=== PATIENT | male | born 1945 | race Caucasian/White ===

== ENCOUNTER 2017-05-06 12:17 | Outpatient (CLI) | payer MEDICARE | END 2017-05-06 12:18 | disposition home or self-care (01) | LOC: RT 12:17 | PROVIDERS: ATTEND Physician Assistant | DX: R07.9 Chest pain, unspecified (principal); I10 Essential (primary) hypertension; I25.10 Atherosclerotic heart disease of native coronary artery without angina pectoris; Z95.5 Presence of coronary angioplasty implant and graft | CPT/HCPCS: 93005; 93306 ==

== ENCOUNTER 2017-06-29 15:23 | Outpatient (CLI) | payer MEDICARE ==
[2017-06-29 15:47] LABS: BASOPHILS # (AUTO) 0.1 10^3/uL (0.0-0.1); BASOPHILS % (AUTO) 0.6 %; EOSINOPHILS # (AUTO) 0.4 10^3/uL (0.0-0.7); EOSINOPHILS % (AUTO) 4.7 %; HCT - HEMATOCRIT 44.9 % (42.0-52.0); HGB - HEMOGLOBIN 15.5 g/dL (14.0-18.0); LYMPHOCYTES # (AUTO) 1.6 10^3/uL (1.5-3.5); LYMPHOCYTES % (AUTO) 19.9 %; MEAN CORPUSCULAR HEMOGLOBIN 33.9 pg (27.0-31.0); MEAN CORPUSCULAR HGB CONC 34.6 g/dL (32.0-36.0); MEAN CORPUSCULAR VOLUME 97.8 fL (80.0-94.0); MEAN PLATELET VOLUME 9.5 fL (7.4-11.4); MONOCYTES # (AUTO) 0.7 10^3/uL (0.0-1.0); NEUTROPHILS # (AUTO) 5.5 10^3/uL (1.5-6.6); NEUTROPHILS % (AUTO) 66.8 %; RED BLOOD COUNT 4.59 10^6/uL (4.70-6.10); RED CELL DISTRIBUTION WIDTH 12.9 % (12.0-15.0); UNCORRECTED WHITE BLOOD COUNT 8.3 x10^3/uL; WHITE BLOOD COUNT 8.3 x10^3/uL (4.8-10.8)
[2017-06-29 15:52] LABS: INR 0.9 (0.8-1.2); PT - PROTHROMBIN TIME 10.5 secs (9.9-12.6)
[2017-06-29 15:56] LABS: CALCIUM 9.3 mg/dL (8.5-10.3); CREATININE 1.3 mg/dL (0.6-1.2); POTASSIUM 4.2 mmol/L (3.5-5.0)
[2017-06-29 15:59] LABS: PARTIAL THROMBOPLASTIN TIME 23.1 secs (24.9-33.3)
== END 2017-06-29 15:24 | disposition home or self-care (01) ==
LOC: LAB 15:23
PROVIDERS: ATTEND Internal Medicine Cardiovascular Disease
DX: R94.39 Abnormal result of other cardiovascular function study (principal); R07.89 Other chest pain
CPT/HCPCS: 36415; 80048; 85025; 85610; 85730

== ENCOUNTER 2019-05-22 09:22 | Outpatient (CLI) | payer MEDICARE ==
--- NOTE | 2019-05-23 17:17 | XRAY Report ---
Reason: PAIN IN LEFT ANKLE JOINTS OF LEFT FOOT Procedure Date: 05/22/2019 Accession Number: [id number] / [id number] Procedure: XRS - Ankle 3 View LT CPT Code: FULL RESULT: EXAM: LEFT ANKLE RADIOGRAPHY EXAM DATE: 05/22/2019 09:32 AM. CLINICAL HISTORY: Pain in left ankle joints of left foot. COMPARISON: None. TECHNIQUE: 3 views. FINDINGS: Bones: Plantar calcaneal spur. No fractures or bone lesions. Joints: Mild degenerative changes throughout the ankle with joint space loss and osteophytosis. No effusion. No subluxations. The ankle mortise is normally aligned. Soft Tissues: Peripheral vascular disease. No soft tissue swelling. IMPRESSION: Mild degenerative changes about the ankle without an acute abnormality seen. [facility]
== END 2019-05-22 09:23 | disposition home or self-care (01) ==
LOC: DI.S 09:22
PROVIDERS: ATTEND Physician Assistant
DX: M19.072 Primary osteoarthritis, left ankle and foot (principal)

== ENCOUNTER 2019-06-30 12:14 | Outpatient (CLI) | payer MEDICARE ==
--- NOTE | 2019-07-01 17:06 | MRI Report ---
Reason: PAIN IN LEFT ANKLE AND JOINTS OF LEFT FOOT Procedure Date: 06/30/2019 Accession Number: [id number] / [id number] Procedure: MRI - Ankle LT W/O CPT Code: FULL RESULT: EXAM: LEFT ANKLE/HINDFOOT MRI WITHOUT CONTRAST EXAM DATE: 06/30/2019 01:34 PM. CLINICAL HISTORY: Chronic ankle and foot pain. COMPARISON: ANKLE 3 VIEW LT 05/22/2019 9:43 AM. TECHNIQUE: Multiplanar, multisequence T1-weighted and fluid-sensitive sequences of the ankle/hindfoot without contrast. Other: None. FINDINGS: Bones: There is an old avulsion fracture of the tip of the medial malleolus. There are no acute fractures. There are small talar dome osteophytes. There is a small focus of marrow edema in the anterior margin of the tibial plafond. Articular Cartilage: Mild erosion of the hyaline cartilage of the tibiotalar articulation. Ligaments: There is focal bony hypertrophy at the tibial attachment of the anterior tibiofibular ligament. The ligament appears thickened, suggestive of a prior partial thickness tear. There is a small focus of marrow edema along the lateral surface of the distal tibia at the distal tibiofibular joint. There is an old grade 3 tear of the anterior talofibular ligament. The calcaneofibular ligament appears thickened, suggestive of a prior low-grade partial thickness tear. There is an avulsion fracture of the lateral margin of the talus. The posterior talofibular ligament appears unremarkable.There is thinning of the deep and superficial components of the medial collateral ligament suggestive of a prior low-grade partial thickness tear. Anterior Tendons: The tibialis anterior, extensor hallucis longus, and extensor digitorum longus tendons are unremarkable. Medial Tendons: The tibialis posterior, flexor digitorum longus, and flexor hallucis longus tendons are unremarkable. Lateral Tendons: The peroneus brevis and longus are unremarkable. Achilles Tendon: The Achilles tendon is unremarkable. Musculature: Marked fatty atrophy of the intrinsic muscles of the foot. Other: There is a moderate-sized ankle joint effusion. There is thickening of the synovium, suggestive of synovitis, irregularly in the anterolateral recess.The contents of the sinus tarsi and tarsal tunnel are unremarkable.No plantar fasciitis.There is marked subcutaneous edema surrounding the ankle and hindfoot. The finding is nonspecific. IMPRESSION: 1. Old avulsion fracture of the lateral margin of the talus, and the tip of the medial malleolus, suggestive of prior trauma to the collateral ligaments. 2. Old grade 3 tear of the anterior talofibular ligament. Old partial thickness tears of the calcaneofibular and medial collateral ligaments. 3. Prior low-grade partial thickness tear of the anterior tibiofibular ligament. 4. Diffuse subcutaneous edema. 5. Moderate-sized ankle joint effusion with mild synovitis. 6. Mild ankle osteoarthritis. [facility]
--- NOTE | 2019-07-01 17:42 | MRI Report ---
Reason: PAIN IN LEFT ANKLE AND JOINTS OF LEFT FOOT Procedure Date: 06/30/2019 Accession Number: [id number] / [id number] Procedure: MRI - Foot LT W/O CPT Code: FULL RESULT: EXAM: LEFT MIDFOOT MRI WITHOUT CONTRAST EXAM DATE: 06/30/2019 01:53 PM. CLINICAL HISTORY: Chronic pain in the foot and ankle. COMPARISON: None. TECHNIQUE: Multiplanar, multisequence T1-weighted and fluid-sensitive sequences of the midfoot without contrast. Other: None. FINDINGS: Bones: There is artifact in the subcutaneous tissues over the dorsum of the proximal phalanx of the second digit. This may represent a foreign body. Articular Cartilage: There is mild osteoarthritis of the first metatarsophalangeal joint. Ligaments: The visualized intertarsal, intermetatarsal, and tarsometatarsal ligaments are intact. This includes the Lisfranc ligament. The visualized collateral ligaments are intact. Tendons: The flexor and extensor tendons are unremarkable. Musculature: There is severe fatty atrophy of the intrinsic muscles of the foot. There is mild edema, suggesting denervation atrophy. Other: No effusions.The visualized portion of the tarsal tunnel is unremarkable.No intermetatarsal bursitis.There is moderate subcutaneous edema over the dorsum of the midfoot. IMPRESSION: 1. 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 2. Mild degenerative change of the first metatarsophalangeal joint. 3. Possible foreign body in the soft tissues overlying the dorsum of the proximal phalanx of the second digit. 4. Moderate subcutaneous edema over the dorsum of the foot which is nonspecific. [facility]
== END 2019-06-30 12:15 | disposition home or self-care (01) ==
LOC: DI 12:14
PROVIDERS: ATTEND Physician Assistant
DX: S82.842A Displaced bimalleolar fracture of left lower leg, initial encounter for closed fracture (principal); S93.492A Sprain of other ligament of left ankle, initial encounter; S93.412A Sprain of calcaneofibular ligament of left ankle, initial encounter; S93.432A Sprain of tibiofibular ligament of left ankle, initial encounter; M25.472 Effusion, left ankle; M65.9 Synovitis and tenosynovitis, unspecified; M19.072 Primary osteoarthritis, left ankle and foot; M62.572 Muscle wasting and atrophy, not elsewhere classified, left ankle and foot; R60.0 Localized edema

== ENCOUNTER 2021-02-12 08:00 | Outpatient (CLI) | payer MEDICARE ==
[2021-02-12 16:01] LABS: NEUTROPHILS %, BF 95 %
[2021-02-12 16:02] LABS: BF CLARITY BLOODY; BF COLOR RED; BF SOURCE SYNOVIAL; LYMPHOCYTES %,BODY FLUID 3 %; MONOCYTES %,BODY FLUID 2 %
== END 2021-02-12 23:59 | disposition home or self-care (01) ==
LOC: LAB.S 08:00
PROVIDERS: ATTEND Emergency Medicine
DX: M70.42 Prepatellar bursitis, left knee (principal)
CPT/HCPCS: 87070; 87205; 89051

== ENCOUNTER 2021-05-13 08:40 | Outpatient (CLI) | payer MEDICARE ==
[2021-05-13 15:18] LABS: CHOL/HDL RATIO 2.8 (<5.0); CHOLESTEROL 135 mg/dL; HDL CHOLESTEROL 49 mg/dL; LDL CHOLESTEROL,CALCULATED 64 mg/dL; LDL/HDL RATIO 1.3 (<3.6); TRIGLYCERIDES 108 mg/dL; VLDL CHOLESTEROL 22 mg/dL
== END 2021-05-13 08:41 | disposition home or self-care (01) ==
LOC: LAB.S 08:40
PROVIDERS: ATTEND Internal Medicine Cardiovascular Disease
DX: I10 Essential (primary) hypertension (principal)
CPT/HCPCS: 36415; 80061; 83721

== ENCOUNTER 2024-02-29 08:00 | Outpatient (CLI) | payer MEDICARE ==
[2024-02-29 15:45] LABS: BILIRUBIN,URINE NEGATIVE (NEGATIVE); GLUCOSE, URINE (UA) >=1000 mg/dL (NEGATIVE); KETONES,URINE (UA) NEGATIVE (NEGATIVE); LEUKOCYTE ESTERASE, URINE NEGATIVE (NEGATIVE); NITRITE,URINE NEGATIVE (NEGATIVE); OCCULT BLOOD,URINE NEGATIVE (NEGATIVE); PROTEIN,URINE 30 mg/dL (NEGATIVE); UROBILINOGEN,URINE 0.2 (NORMAL) E.U./dL (NORMAL)
[2024-02-29 15:52] LABS: BACTERIA,URINE None Seen /HPF (None Seen); CLARITY,URINE CLEAR (CLEAR); RBC,URINE 0-5 /HPF (0-5); SQUAMOUS EPITHELIAL CELL,UR NONE SEEN (<= Few); WBC,URINE 0-3 /HPF (0-3)
== END 2024-02-29 23:59 | disposition home or self-care (01) ==
LOC: LAB 08:00
PROVIDERS: ATTEND Urology
DX: R35.1 Nocturia (principal)
CPT/HCPCS: 81001; 87086

== ENCOUNTER 2024-05-16 07:18 | Outpatient (CLI) | payer MEDICARE ==
[2024-05-16 15:22] LABS: BASOPHILS % (AUTO) 0.4 %; EOSINOPHILS # (AUTO) 0.1 10^3/uL (0.0-0.7); EOSINOPHILS % (AUTO) 1.9 %; HCT - HEMATOCRIT 34.9 % (42.0-52.0); HGB - HEMOGLOBIN 11.9 g/dL (14.0-18.0); LYMPHOCYTES # (AUTO) 1.4 10^3/uL (1.5-3.5); LYMPHOCYTES % (AUTO) 19.1 %; MEAN CORPUSCULAR HGB CONC 34.1 g/dL (32.0-36.0); MEAN CORPUSCULAR VOLUME 99.7 fL (80.0-94.0); MEAN PLATELET VOLUME 11.3 fL (7.4-11.4); MONOCYTES # (AUTO) 0.7 10^3/uL (0.0-1.0); MONOCYTES % (AUTO) 8.9 %; NEUTROPHILS # (AUTO) 5.1 10^3/uL (1.5-6.6); NEUTROPHILS % (AUTO) 69.3 %; PLT - PLATELET COUNT 227 10^3/uL (130-450); RED CELL DISTRIBUTION WIDTH 12.6 % (12.0-15.0); WHITE BLOOD COUNT 7.4 x10^3/uL (4.8-10.8)
[2024-05-16 15:51] LABS: URIC ACID 8.8 mg/dL (4.4-7.6)
[2024-05-16 16:04] LABS: ALBUMIN 3.9 g/dL (3.2-5.5); ALBUMIN/GLOBULIN RATIO 1.9 (1.0-2.2); BILIRUBIN,TOTAL 0.4 mg/dL (0.2-1.0); CALCIUM 9.5 mg/dL (8.5-10.3); CREATININE 1.5 mg/dL (0.6-1.3); POTASSIUM 4.3 mmol/L (3.5-4.5)
[2024-05-16 16:18] LABS: FERRITIN 64.5 ng/mL (23.9-336.2)
[2024-05-16 16:57] LABS: CREATININE,URINE 66.9 mg/dL; MICROALBUM/CREATININE RATIO,UR 231.7 ug/mg (<30.0); MICROALBUMIN,URINE 15.5 mg/dL
[2024-05-16 22:10] LABS: ESTIMATED AVERAGE GLUCOSE 166 mg/dL (70-100); HEMOGLOBIN A1c% 7.4 % (4.27-6.07)
== END 2024-05-16 07:19 | disposition home or self-care (01) ==
LOC: LAB.S 07:18
PROVIDERS: ATTEND Internal Medicine
DX: E11.65 Type 2 diabetes mellitus with hyperglycemia (principal); D64.9 Anemia, unspecified; E79.0 Hyperuricemia without signs of inflammatory arthritis and tophaceous disease
CPT/HCPCS: 36415; 80053; 82043; 82570; 82607; 82728; 83036; 83540; 84466; 84550; 85025